=== PATIENT | female | born 1960 | race African-American/Black ===

== ENCOUNTER 2017-07-27 20:55 | Emergency (ER) | payer MEDICAID, MEDICARE ==
[~2017-07-27] VITALS: Ht 167.6 cm; Wt 122.0 kg
[2017-07-27] MEDS: KETOROLAC 60MG/2ML VIAL IM ONE (00:30)
[2017-07-27 21:00] VITALS: BP 139/77
== END 2017-07-28 02:41 | disposition home or self-care (01) ==
LOC: ER 20:55
DX: S02.81XA Fracture of other specified skull and facial bones, right side, initial encounter for closed fracture (principal); F17.200 Nicotine dependence, unspecified, uncomplicated; Y08.89XA Assault by other specified means, initial encounter; Y93.89 Activity, other specified; Y92.89 Other specified places as the place of occurrence of the external cause; Y99.8 Other external cause status
CPT/HCPCS: 70450; 70486; 96372; 99284; J1885